=== PATIENT | male | born 1975 | race Caucasian/White ===

== ENCOUNTER 2019-02-18 16:43 | Emergency (ER) | payer BC ==
[~2019-02-18] VITALS: Ht 170.2 cm; Wt 63.5 kg
--- NOTE | 2019-02-18 17:45 | NUR ---
Patient discharged to home in stable conditon. Written and verbal after care instructions given. Patient verbalizes understanding of instructions.pt walks in steady gait.
== END 2019-02-18 17:46 | disposition home or self-care (01) ==
LOC: ER 16:43
DX: S60.012A Contusion of left thumb without damage to nail, initial encounter (principal); W22.8XXA Striking against or struck by other objects, initial encounter; Y93.89 Activity, other specified; Y92.89 Other specified places as the place of occurrence of the external cause; Y99.8 Other external cause status
CPT/HCPCS: 73140; A4663